=== PATIENT | male | born 1995 | race Caucasian/White ===

== ENCOUNTER 2016-10-12 16:08 | Emergency (ER) | payer OTHER ==
[~2016-10-12] VITALS: Ht 162.6 cm; Wt 43.1 kg
--- NOTE | 2016-10-12 17:53 | ED MVC/FALL/TRAUMA COMPLAINT ---
History of Present Illness General Chief Complaint: Fall Stated Complaint: PT FELL DOWN STAIRS AND HAS HEAD PAIN Source: patient Exam Limitations: no limitations Vital Signs & Intake/Output Vital Signs & Intake/Output Vital Signs Date Time Temp Pulse Resp B/P Pulse O2 O2 Flow FiO2 Ox Delivery Rate 10/12 2102 97.5 68 18 106/66 99 Room Air Room Air 10/12 1958 97.3 66 18 103/67 100 Room Air 10/12 1613 97.5 93 18 142/94 100 Room Air Allergies Coded Allergies: sucralose (Severe, SWELLING THROAT - TIGHTNESS BUT CAN STILL BREATHE 10/12/16) Reconcile Medications Cyclobenzaprine HCl 10 MG TABLET 1 TAB PO TID SPASMS Hydrocodone/Acetaminophen (Hydrocodon-Acetaminophen 5-325) 5 MG-325 MG TABLET 1-2 TAB PO Q4-6 PRN PRN pain Triage Note: 20 DOWN STAIRS LAST NIGHT. PT ADMITS TO ETOH AND STATES "I TUMBLED DOWN" STAIRS - WITNESSED BY FRIEND. BOTH DENY LOC. TODAY PT C/O "ALL OVER BODY" PAIN; HEADACHE, LOW BACK PAIN AND NAUSEA. SPEAKING CLEARLY WITH NO DISTRESS NOTED. AMBULATORY WITH STEADY GAIT NOTED. Triage Nurses Notes Reviewed? yes Onset: Abrupt Duration: day(s): (1) Timing: recent history Severity: moderate, severe Method of Injury: fall Loss of Consciousness: no loss of consciousness No Modifying Factors: none HPI: 20-year-old male comes into emergency room with complaints of headache neck pain back pain and rib pain. Patient reports that last night he fell down some stairs. Patient admits to drinking alcohol. Patient reports that today he feels nauseous with a headache. Patient is having neck pain as well as low back pain. Denies any extremity injuries and does not feel like he broke anything in his arms or legs. Sharp. Sore. Continuous. Worse with range of motion. (EMILY DIXON) Past History Travel History Traveled to [place] past 21 day No Medical History Any Pertinent Medical History? see below for history Neurological: migraine EENT: NONE Cardiovascular: NONE Respiratory: NONE Gastrointestinal: NONE Hepatic: NONE Renal: NONE Musculoskeletal: NONE Psychiatric: NONE Endocrine: NONE Blood Disorders: NONE Cancer(s): NONE BRICK MOLDER HAND/Reproductive: NONE Surgical History Surgical History: non-contributory Psychosocial History What is your primary language Ghanaian Tobacco Use: Current Not Daily Daily Tobacco Use Amount/Type: =< 4 Cigarettes daily Family History Hx Contributory? No (EMILY DIXON) Review of Systems Review of Systems Constitutional: Reports: no symptoms. Eyes: Reports: no symptoms. Ears, Nose, Throat, Mouth: Reports: no symptoms. Respiratory: Reports: no symptoms. Cardiovascular: Reports: no symptoms. Gastrointestinal/Abdominal: Reports: no symptoms. Genitourinary: Reports: no symptoms. Musculoskeletal: Reports: see HPI. Skin: Reports: no symptoms. Neurological/Psychological: Reports: no symptoms. All Other Systems: Reviewed and Negative (EMILY DIXON) Physical Exam Physical Exam General Appearance: well developed/nourished, no apparent distress, alert Head: atraumatic, normal appearance Eyes: Bilateral: normal appearance, PERRL, EOMI. Ears, Nose, Throat, Mouth: hearing grossly normal, moist mucous membrane Neck: normal inspection, supple, full range of motion, no midline tenderness Respiratory: normal breath sounds, chest non-tender, no respiratory distress Cardiovascular: regular rate/rhythm Gastrointestinal: soft Back: normal inspection, normal range of motion Extremities: normal range of motion Neurologic/Psych: awake, alert, oriented x 3, normal gait, normal mood/affect Skin: intact, normal color Core Measures ACS in differential dx? No Severe Sepsis Present: No Septic Shock Present: No (EMILY DIXON) Progress Differential Diagnosis: abd injury, C/T/L spine injury, ext injury, ICH, pelvis injury, pnemothorax, spinal cord injury, CERVICAL FRACTURE Plan of Care: Orders Procedure Date/time Status XRY-LUMBOSACRAL SPINE AP & LAT 10/12 1744 Active XRY-CHEST XRAY, PA AND LATERAL 10/12 1744 Active Diagnostic Imaging: Viewed by Me: Radiology Read, CT Scan. Discussed w/RAD: Radiology Read, CT Scan. Radiology Impression: SERVICE DATE: 10/12/16-1744 EXAM TYPE: CAT - CT CERV SPINE WO IV CONTRAST; CT HEAD WO IV CONTRAST CT HEAD WITHOUT IV CONTRAST CT CERVICAL SPINE WITHOUT IV CONTRAST INDICATION: Fell downstairs/head trauma with neck pain. COMPARISON: None available. TECHNIQUE: Multidetector CT acquisitions of the head and cervical spine were obtained without IV contrast. Multiplanar reformats were acquired and utilized for image interpretation. FINDINGS: HEAD: There is no intracranial hemorrhage, hydrocephalus, extra-axial surface collection, midline shift, or other herniation pattern. Pretty to white matter differentiation is diffusely maintained without evidence of an evolved acute territorial infarct. The basilar cisterns are preserved. No significant soft tissue abnormality. No acute osseous abnormality. The paranasal sinuses and the mastoid air cells are well-aerated. CERVICAL SPINE: Straightening of the cervical lordosis. There is no acute fracture and there is no acute subluxation. The craniocervical and atlantoaxial articulations are normal. There is no prevertebral soft tissue swelling. No significant soft tissue abnormality within the neck. The visualized lung apices are clear. IMPRESSION: 1. No acute intracranial abnormality. 2. No acute osseous abnormality within the cervical spine. DICTATED BY: NEREYDA CODY MD DATE/TIME DICTATED:10/12/161902 WOOD PRESERVING PLANT LABORER:SANDRA DATE/TIME TRANSCRIBED:10/12/161902, SERVICE DATE : 10/12/16 EXAM TYPE: RAD - XRY-CHEST XRAY, PA AND LATERAL; XRY-LUMBOSACRAL SPINE AP & LAT PA and lateral chest radiograph and 2 views of the lumbar spine CLINICAL INFORMATION: Trauma with fall and pain. COMPARISON: None available. FINDINGS: Chest: Symmetric lung inflation. No focal consolidation, pleural effusion, or pneumothorax. Cardiac silhouette size is normal. There are no acute osseous findings. Lumbar spine: 5 nonrib-bearing lumbar-type vertebral bodies with hypoplastic ribs at the lowermost thoracic type segment. There are no acute fractures and there are no acute subluxations. Vertebral body heights are maintained. Disc spaces are preserved. No significant soft tissue findings. IMPRESSION: Unremarkable radiographs of the chest and lumbar spine. No acute findings. DICTATED BY: NEREYDA CODY MD DATE/TIME DICTATED:10/12/161950 [employer]ING [employer] LABORER:HALEY DATE/TIME TRANSCRIBED:10/12/161950 Comments: 10/12/2016 10:14:50 PM Nontoxic-appearing. In no apparent distress. No evidence of acute trauma. (EMILY DIXON) Departure Departure Disposition: HOME OR SELF CARE Condition: Stable Clinical Impression Primary Impression: Concussion Secondary Impressions: Back strain Referrals: RONEL BARRIOS APRN (PCP/Family) Additional Instructions: Take Vicodin as prescribed. Take Naprosyn home. Take Flexeril prescribed. Return if any other concerns worsening symptoms. Please go over all results of today's visit with your primary care doctor. Contact your primary care doctor to let them know you were here in the emergency room. There may be nonspecific findings which may not be related to your visit today here in the emergency room but may require further evaluation and chronic monitoring by your primary care doctor. If you had a laceration today the chance of foreign body always remains. You should follow-up with your primary care doctor for recheck in 3-5 days for a wound check. If you had an x-ray done there is a chance that a fracture could have been missed on initial read and you should follow-up with your primary care doctor for repeat x-rays if symptoms persist. If your blood pressure was elevated here in the emergency room please have rechecked by her primary care doctor within the next 48 hours by your primary care doctor. If you were prescribed a narcotic here in the emergency room or any type of controlled substances you're not allowed to drive while taking this medication or operate any type of heavy machinery. Narcotics can make you feel lightheaded dizziness nausea and can cause constipation. You may need to cigar packer and picker a stool softener. Thank you for choosing [facility] emergency room. Please return to the emergency room immediately if you have any other concerns worsening of symptoms. Departure Forms: Customer Survey General Discharge Information Prescriptions: Current Visit Scripts Hydrocodone/Acetaminophen (Hydrocodon-Acetaminophen 5-325) 1-2 TAB PO Q4-6 PRN PRN pain #10 TAB Cyclobenzaprine HCl 1 TAB PO TID #20 TAB (EMILY DIXON) PA/CHORE WORKER Co-Sign Statement Statement: ED Attending supervision documentation- [] I saw and evaluated the patient. I have also reviewed all the pertinent lab results and diagnostic results. I agree with the findings and the plan of care as documented in the PA's/CHORE WORKER's documentation. x I have reviewed the ED Record and agree with the PA's/CHORE WORKER's documentation. [] Additions or exceptions (if any) to the PAs/CHORE WORKER's note and plan are summarized below: [] (EBCKY BAER,PRABHA)
--- NOTE | 2016-10-12 19:14 | CT SCAN REPORT ---
CT HEAD WITHOUT IV CONTRAST CT CERVICAL SPINE WITHOUT IV CONTRAST INDICATION: Fell downstairs/head trauma with neck pain. COMPARISON: None available. TECHNIQUE: Multidetector CT acquisitions of the head and cervical spine were obtained without IV contrast. Multiplanar reformats were acquired and utilized for image interpretation. FINDINGS: HEAD: There is no intracranial hemorrhage, hydrocephalus, extra-axial surface collection, midline shift, or other herniation pattern. Pretty to white matter differentiation is diffusely maintained without evidence of an evolved acute territorial infarct. The basilar cisterns are preserved. No significant soft tissue abnormality. No acute osseous abnormality. The paranasal sinuses and the mastoid air cells are well-aerated. CERVICAL SPINE: Straightening of the cervical lordosis. There is no acute fracture and there is no acute subluxation. The craniocervical and atlantoaxial articulations are normal. There is no prevertebral soft tissue swelling. No significant soft tissue abnormality within the neck. The visualized lung apices are clear. IMPRESSION: 1. No acute intracranial abnormality. 2. No acute osseous abnormality within the cervical spine.
--- NOTE | 2016-10-12 19:58 | RADIOLOGY REPORT ---
PA and lateral chest radiograph and 2 views of the lumbar spine CLINICAL INFORMATION: Trauma with fall and pain. COMPARISON: None available. FINDINGS: Chest: Symmetric lung inflation. No focal consolidation, pleural effusion, or pneumothorax. Cardiac silhouette size is normal. There are no acute osseous findings. Lumbar spine: 5 nonrib-bearing lumbar-type vertebral bodies with hypoplastic ribs at the lowermost thoracic type segment. There are no acute fractures and there are no acute subluxations. Vertebral body heights are maintained. Disc spaces are preserved. No significant soft tissue findings. IMPRESSION: Unremarkable radiographs of the chest and lumbar spine. No acute findings.
[2016-10-12] MEDS ORDERED: HYDROCODON-ACE1 EAC2 PO (20:48)
[2016-10-12] MEDS ORDERED: CYCLOBENZAPRINE10 M1 PO (20:48)
[2016-10-12 21:03] VITALS: BP 106/66
== END 2016-10-12 21:13 ==
LOC: ERH 16:08 → EDSEX 16:20 → ERH 21:13
DX: S39.012A Strain of muscle, fascia and tendon of lower back, initial encounter (principal); S06.0X9A Concussion with loss of consciousness of unspecified duration, initial encounter; W10.9XXA Fall (on) (from) unspecified stairs and steps, initial encounter
CPT/HCPCS: 72100